=== PATIENT | male | born 1950 | race Caucasian/White ===

== ENCOUNTER 2018-10-28 07:12 | Outpatient (CLI) | payer MEDICARE ==
--- NOTE | 2018-10-28 07:56 | RAD ---
EXAM: Abdomen one view: HISTORY: Right flank pain, history of renal stones COMPARISON: 12/11/2013 FINDINGS: No evidence for large or small bowel obstruction. No free intraperitoneal air . Irregular calcific density, 0.6 cm, overlying the right sacral alar region inferiorly concerning for possibility of a right ureteral calculus. Multiple calcified phleboliths. No bowel obstruction. Lumbar spine spondylosis and minimal scoliosis. IMPRESSION: Evidence for distal right ureteral calculus.
== END 2018-10-28 07:13 | disposition home or self-care (01) ==
LOC: MADRAD 07:12
PROVIDERS: ATTEND Urology
DX: N20.0 Calculus of kidney (principal); R10.10 Upper abdominal pain, unspecified; N20.1 Calculus of ureter
CPT/HCPCS: 74018

== ENCOUNTER 2018-12-22 07:23 | Outpatient (CLI) | payer MEDICARE ==
--- NOTE | 2018-12-22 08:18 | RAD ---
KUB: DATE: 12/22/2018. COMPARISON: 10/28/2018. HISTORY: Ureteral calculus. FINDINGS: Significant stool overlies the left colon. There is prominent degenerative change involving the lumba r spine with mild dextroscoliosis and multilevel disc space narrowing and facet hypertrophy. Calcifications in the pelvis suggest phleboliths. In addition, there is a nonspecific calcification o verlying the inferior aspect of the left sacrum measuring 5 mm. This may represent a stone within the distal right ureter. No evidence for bowel obstruction. IMPRESSION: Stable KUB as detailed above. 5 mm calcification overlies the inferior aspect of the right sacrum, wh ich could represent a distal right ureteral calculus in the proper clinical setting. Transcribed Date/Time: 12/22/2018 11:09 AM
== END 2018-12-22 07:24 | disposition home or self-care (01) ==
LOC: MADRAD 07:23
PROVIDERS: ATTEND Urology
DX: N20.1 Calculus of ureter (principal); M53.3 Sacrococcygeal disorders, not elsewhere classified
CPT/HCPCS: 74018

== ENCOUNTER 2019-01-25 07:04 | Outpatient (CLI) | payer MEDICARE ==
--- NOTE | 2019-01-25 09:44 | RAD ---
ABDOMEN ONE VIEW: HISTORY: History of ureteral calculus. COMPARISON: 12/22/2018 FINDINGS: Somewhat triangular shaped calcific opacity overlying the right inferolateral sacral ala, consistent with a ureteral calculus, stable in position from prior study. IMPRESSION: Overall stable distal right ureteral calculus. POS: CURT
== END 2019-01-25 07:05 | disposition home or self-care (01) ==
LOC: MADRAD 07:04
PROVIDERS: ATTEND Urology
DX: N20.1 Calculus of ureter (principal)
CPT/HCPCS: 74018

== ENCOUNTER 2021-02-06 14:07 | Outpatient (CLI) | payer MEDICARE | END 2021-02-06 14:08 | disposition home or self-care (01) | LOC: MADRAD 14:07 | PROVIDERS: ATTEND Orthopaedic Surgery | DX: M25.561 Pain in right knee (principal) ==

== ENCOUNTER 2021-11-12 07:46 | Outpatient (CLI) | payer MEDICARE | END 2021-11-12 07:47 | disposition home or self-care (01) | LOC: MADRAD 07:46 | PROVIDERS: ATTEND Urology | DX: N20.0 Calculus of kidney (principal) | CPT/HCPCS: 74018 ==

== ENCOUNTER 2022-04-26 07:56 | Emergency (ER) | payer MEDICARE, OTHER ==
[2022-04-26] MEDS ORDERED: Meclizine HCl 25 MG TAB ONE (08:16)
[2022-04-26] MEDS ORDERED: Sodium Chloride 0.9% 1,000 ML ONE (08:16)
[2022-04-26] MEDS ORDERED: Ondansetron PF 4 MG/2 ML Vial ONE (08:16)
[2022-04-26 08:20] LABS: #Basophils 0.1 thou/uL (0.0-0.2); #Lymphocytes 0.6 thou/uL (1.20-3.40); #Monocytes 0.4 thou/uL (0.11-0.59); #Neutrophils 4.7 thou/uL (1.40-6.50); %Basophils 1.1 % (0.0-1.0); %Eosinophils 0.5 % (0.0-10.0); %Lymphocytes 10.1 % (21.0-51.0); %Monocytes 6.4 % (0.0-10.0); %Neutrophils 81.9 % (42.0-75.0); Hemoglobin 16.4 g/dL (14.0-18.0); Mean Corpuscular HGB CONC 34.6 g/dL (32.0-36.0); Mean Corpuscular Hemoglobin 33.5 pg (27.0-31.0); Mean Corpuscular Volume 96.8 fl (78.0-98.0); Platelet Count 122 10x3/uL (130-400); RBC Distribution Width 10.6 % (11.5-14.5); White Blood Cell (WBC) Count 5.8 10x3/uL (4.8-10.8)
[2022-04-26 08:34] LABS: ALT (SGPT) 53 U/L (8-55); AST (SGOT) 43 U/L (5-34); Albumin 4.2 g/dL (3.4-4.8); Alkaline Phosphatase 67 U/L (40-110); Anion Gap 17 mmol/L (10-20); BUN (Urea Nitrogen) 20 mg/dL (8.4-25.7); Bilirubin, Total 0.8 mg/dL (0.2-1.2); Calc. Creatinine Clearance 0 mL/min (70-130); Calcium 9.2 mg/dL (7.8-10.44); Carbon Dioxide 21 mmol/L (23-31); Chloride 111 mmol/L (98-107); Estimated GFR 74; Globulin 2.5 g/dL (2.4-3.5); Glucose 189 mg/dL (80-115); Potassium 3.5 mmol/L (3.5-5.1); Protein, Total 6.7 g/dL (5.8-8.1); Sodium 145 mmol/L (136-145)
[2022-04-26 09:25] LABS: Bilirubin Negative (Negative); Blood, Urine Trace (Negative); Glucose, Urine (Dipstick) Negative (Negative); Ketone, Urine Trace mg/dL (Negative); Leukocyte Negative (Negative); Nitrite Negative (Negative); Protein, Urine (Dipstick) Trace mg/dL (Neg-Trace); Urobilinogen 0.2 mg/dL (Less than 2); pH, Urine 5.5 (5.0-9.0)
[2022-04-26 09:31] LABS: Specific Gravity, Urine 1.029 (1.002-1.036)
[2022-04-26 09:32] LABS: Clarity Hazy (Clear)
[2022-04-26 09:34] LABS: Bacteria/HPF Rare-Few HPF (None Seen); Mucous/LPF 2+ LPF (<2+); RBC/HPF 0-3 HPF (0-3); Squamous Epithelial 0-3 HPF (0-3); WBC/HPF 0-3 HPF (0-3)
[2022-04-26] MEDS ORDERED: Diazepam 5 MG TAB ONE (09:41)
== END 2022-04-26 11:05 | disposition home or self-care (01) ==
LOC: MADERS 07:56
DX: R42 Dizziness and giddiness (principal); R11.2 Nausea with vomiting, unspecified; E78.5 Hyperlipidemia, unspecified; I10 Essential (primary) hypertension
CPT/HCPCS: 70450; 71045; 80053; 81003; 81015; 83735; 84484; 85025; 93005; 96374; J2405; J7050

== ENCOUNTER 2022-12-02 10:08 | Outpatient (CLI) | payer OTHER ==
[2022-12-02 11:08] LABS: #Eosinphils 0.1 thou/uL (0.0-0.7); #Lymphocytes 0.8 thou/uL (1.20-3.40); #Monocytes 0.5 thou/uL (0.11-0.59); #Neutrophils 2.7 thou/uL (1.40-6.50); %Basophils 1.1 % (0.0-1.0); %Eosinophils 2.1 % (0.0-10.0); %Monocytes 11.1 % (0.0-10.0); %Neutrophils 65.7 % (42.0-75.0); Hematocrit 47.5 % (42.0-52.0); Hemoglobin 16.4 g/dL (14.0-18.0); Mean Corpuscular HGB CONC 34.5 g/dL (32.0-36.0); Mean Corpuscular Hemoglobin 34.3 pg (27.0-31.0); Mean Corpuscular Volume 99.4 fl (78.0-98.0); Mean Platelet Volume 11.8 fL (7.4-10.4); Platelet Count 130 10x3/uL (130-400); RBC Distribution Width 11.7 % (11.5-14.5); Red Blood Cell (RBC) Count 4.78 mill/uL (4.70-6.10); White Blood Cell (WBC) Count 4.1 10x3/uL (4.8-10.8)
[2022-12-02 11:15] LABS: ALT (SGPT) 73 U/L (8-55); AST (SGOT) 60 U/L (5-34); Albumin 4.4 g/dL (3.4-4.8); Alkaline Phosphatase 71 U/L (40-110); Anion Gap 13 mmol/L (10-20); BUN (Urea Nitrogen) 17 mg/dL (8.4-25.7); Bilirubin, Total 1.3 mg/dL (0.2-1.2); CRP (Inflammatory) Less than 0.50 mg/dL (= or < 0.5); Calc. Creatinine Clearance 0 mL/min (70-130); Calcium 9.8 mg/dL (7.8-10.44); Carbon Dioxide 27 mmol/L (23-31); Chloride 106 mmol/L (98-107); Estimated GFR 79; Globulin 2.6 g/dL (2.4-3.5); Glucose 120 mg/dL (83-110); Potassium 4.3 mmol/L (3.5-5.1); Sodium 142 mmol/L (136-145); Uric Acid 6.8 mg/dL (3.5-7.2)
[2022-12-02 17:23] LABS: Vitamin D, 25 Hydroxy 20.9 ng/ml (> 30.0)
[2022-12-03 14:16] LABS: ANA Symphony (Qualitative) Negative (Negative); ANA Symphony (Quantitative) 0.3 Ratio (< 0.7 Negative); CCP IgG Antibody 1.3 EliAU/mL (<7 Negative); EliA RAS New Method **** NEW METHOD ****; Rheumatoid Factor IgA Antibody 2.3 IU/mL (<14 Negative); Rheumatoid Factor IgM Antibody Less than 0.6 IU/mL (<3.5 Negative); SSA/Ro IgG Antibody 0.4 EliAU/mL (<7 Negative); SSB/La IgG Antibody Less than 0.4 EliAU/mL (<7 Negative); dsDNA IgG Antibody 1.2 IU/mL (<10 Negative)
== END 2022-12-02 10:09 | disposition home or self-care (01) ==
LOC: MADRAD 10:08
PROVIDERS: ATTEND Internal Medicine Rheumatology
DX: M25.541 Pain in joints of right hand (principal); M25.542 Pain in joints of left hand; M54.2 Cervicalgia; M54.50 Low back pain, unspecified; M18.11 Unilateral primary osteoarthritis of first carpometacarpal joint, right hand; M47.816 Spondylosis without myelopathy or radiculopathy, lumbar region; M46.1 Sacroiliitis, not elsewhere classified; M47.812 Spondylosis without myelopathy or radiculopathy, cervical region; M19.042 Primary osteoarthritis, left hand; M19.041 Primary osteoarthritis, right hand; E55.9 Vitamin D deficiency, unspecified; R53.82 Chronic fatigue, unspecified; Z79.899 Other long term (current) drug therapy
CPT/HCPCS: 36415; 72040; 72100; 72220; 80053; 82306; 83520; 84155; 84165; 84439; 84443; 84550; 85025; 85652; 86037; 86038; 86140; 86200; 86225; 86235

== ENCOUNTER 2023-07-08 13:44 | Emergency (ER) | payer OTHER ==
[~2023-07-08 13:44] MED LIST: Iopamidol 370 76% 100 ML VIAL ONE
[2023-07-08 14:25] LABS: #Lymphocytes 0.3 thou/uL (1.20-3.40); #Monocytes 0.2 thou/uL (0.11-0.59); #Neutrophils 4.6 thou/uL (1.40-6.50); %Basophils 0.7 % (0.0-1.0); %Eosinophils 0.3 % (0.0-10.0); %Lymphocytes 4.9 % (21.0-51.0); %Monocytes 4.7 % (0.0-10.0); %Neutrophils 89.4 % (42.0-75.0); Hematocrit 44.6 % (42.0-52.0); Hemoglobin 14.6 g/dL (14.0-18.0); Mean Corpuscular HGB CONC 32.7 g/dL (32.0-36.0); Mean Corpuscular Hemoglobin 31.6 pg (27.0-31.0); Mean Corpuscular Volume 96.5 fl (78.0-98.0); Mean Platelet Volume 10.5 fL (7.4-10.4); Platelet Adequacy Comment Appears Decreased; Platelet Count 114 10x3/uL (130-400); RBC Distribution Width 11.8 % (11.5-14.5); Red Blood Cell (RBC) Count 4.62 mill/uL (4.70-6.10); White Blood Cell (WBC) Count 5.2 10x3/uL (4.8-10.8)
[2023-07-08 14:32] LABS: ALT (SGPT) 34 U/L (8-55); AST (SGOT) 35 U/L (5-34); Albumin 4.4 g/dL (3.4-4.8); Alkaline Phosphatase 54 U/L (40-110); Anion Gap 17 mmol/L (10-20); BUN (Urea Nitrogen) 18 mg/dL (8.4-25.7); Bilirubin, Total 1.4 mg/dL (0.2-1.2); Calc. Creatinine Clearance 0 mL/min (70-130); Calcium 9.1 mg/dL (7.8-10.44); Carbon Dioxide 20 mmol/L (23-31); Chloride 108 mmol/L (98-107); Estimated GFR 91; Globulin 2.6 g/dL (2.4-3.5); Glucose 112 mg/dL (83-110); Lipase 32 U/L (8-78); Magnesium 1.8 mg/dL (1.6-2.6); Potassium 4.2 mmol/L (3.5-5.1); Sodium 141 mmol/L (136-145); Troponin I Less than 0.010 ng/mL (< 0.028)
[2023-07-08 14:59] LABS: Influenza A by NAA Not Detected (NotDetected); Influenza B by NAA Not Detected (NotDetected); SARS-CoV-2 NAA Rapid Test Not Detected (NotDetected)
[2023-07-08] MEDS ORDERED: Ketorolac Tromethamine 30 MG (1 mL) VIAL ONE (16:05)
[2023-07-08 17:48] LABS: Troponin I Less than 0.010 ng/mL (< 0.028)
== END 2023-07-08 18:15 | disposition home or self-care (01) ==
LOC: MADERS 13:44
DX: R50.9 Fever, unspecified (principal); R06.02 Shortness of breath; E83.119 Hemochromatosis, unspecified; K72.90 Hepatic failure, unspecified without coma; R16.1 Splenomegaly, not elsewhere classified; K21.9 Gastro-esophageal reflux disease without esophagitis; I10 Essential (primary) hypertension; Z79.899 Other long term (current) drug therapy
CPT/HCPCS: 0240U; 71045; 74019; 74177; 83605; 83690; 83735; 83880; 84484 ×2; 85379; 93005; 80053; 84443; 85025; 96374; J1885; Q9967

== ENCOUNTER 2025-01-04 07:06 | Outpatient (CLI) | payer OTHER ==
[2025-01-04 07:54] LABS: #Basophils 0.1 thou/uL (0.0-0.2); #Eosinophils 0.1 thou/uL (0.0-0.7); #Lymphocytes 0.9 thou/uL (1.20-3.40); #Monocytes 0.3 thou/uL (0.11-0.59); #Neutrophils 1.7 thou/uL (1.40-6.50); %Basophils 2.1 % (0.0-1.0); %Eosinophils 3.6 % (0.0-10.0); %Lymphocytes 31.1 % (21.0-51.0); %Monocytes 8.6 % (0.0-10.0); %Neutrophils 54.6 % (42.0-75.0); Hematocrit 42.6 % (42.0-52.0); Hemoglobin 13.5 g/dL (14.0-18.0); Mean Corpuscular Hemoglobin 28.6 pg (27.0-31.0); Mean Corpuscular Volume 90.2 fl (78.0-98.0); Platelet Count 147 10x3/uL (130-400); Red Blood Cell (RBC) Count 4.72 mill/uL (4.70-6.10); White Blood Cell (WBC) Count 3.0 10x3/uL (4.8-10.8)
[2025-01-04 07:56] LABS: ALT (SGPT) 25 U/L (Less than 45); AST (SGOT) 34 U/L (11-34); Albumin 4.3 g/dL (3.1-4.5); Alkaline Phosphatase 60 U/L (40-110); Anion Gap 15 mmol/L (10-20); BUN (Urea Nitrogen) 20 mg/dL (8.4-25.7); Bilirubin, Total 0.5 mg/dL (0.3-1.2); Calc. Creatinine Clearance 0 mL/min (70-130); Calcium 9.0 mg/dL (7.8-10.44); Carbon Dioxide 23 mmol/L (23-31); Chloride 109 mmol/L (98-107); Globulin 2.9 g/dL (2.4-3.5); Glucose 150 mg/dL (83-110); Potassium 4.2 mmol/L (3.5-5.1); Sodium 143 mmol/L (136-145)
[2025-01-04 12:48] LABS: Iron 38 ug/dL (65-175); Iron Binding Capacity, Total 360 mcg/dL (261-462)
[2025-01-04 13:10] LABS: Immunoglob - A (Total IgA) 154 mg/dL (101-645); Immunoglob - G (Total IgG) 1057 mg/dL (540-1822); Immunoglob - M (Total IgM) 32 mg/dL (22-240)
[2025-01-05 15:14] LABS: Kappa Lambda Light Chain Ratio 1.38 (0.26-1.65)
== END 2025-01-04 07:07 | disposition home or self-care (01) ==
LOC: MADLAB 07:06
PROVIDERS: ATTEND Internal Medicine
DX: D72.819 Decreased white blood cell count, unspecified (principal); D69.6 Thrombocytopenia, unspecified; Z79.899 Other long term (current) drug therapy
CPT/HCPCS: 36415; 80053; 82728; 83540; 83550; 83883; 84155; 84165; 85025

== ENCOUNTER 2025-04-05 07:02 | Outpatient (CLI) | payer OTHER ==
[2025-04-05 07:25] LABS: #Basophils 0.1 thou/uL (0.0-0.2); #Eosinophils 0.2 thou/uL (0.0-0.7); #Lymphocytes 0.9 thou/uL (1.20-3.40); #Monocytes 0.3 thou/uL (0.11-0.59); #Neutrophils 2.0 thou/uL (1.40-6.50); %Basophils 2.1 % (0.0-1.0); %Eosinophils 6.1 % (0.0-10.0); %Lymphocytes 25.8 % (21.0-51.0); %Monocytes 9.5 % (0.0-10.0); %Neutrophils 56.5 % (42.0-75.0); Hematocrit 43.2 % (42.0-52.0); Hemoglobin 14.2 g/dL (14.0-18.0); Mean Corpuscular Hemoglobin 29.8 pg (27.0-31.0); Mean Corpuscular Volume 90.3 fl (78.0-98.0); Platelet Count 124 10x3/uL (130-400); Red Blood Cell (RBC) Count 4.78 mill/uL (4.70-6.10); White Blood Cell (WBC) Count 3.6 10x3/uL (4.8-10.8)
[2025-04-05 12:51] LABS: Iron 83 ug/dL (65-175); Iron Binding Capacity, Total 345 mcg/dL (261-462)
== END 2025-04-05 07:03 | disposition home or self-care (01) ==
LOC: MADLAB 07:02
PROVIDERS: ATTEND Internal Medicine
DX: D72.819 Decreased white blood cell count, unspecified (principal); D69.6 Thrombocytopenia, unspecified; Z79.899 Other long term (current) drug therapy
CPT/HCPCS: 36415; 82728; 83540; 83550; 85025